=== PATIENT | female | born 1940 | race Caucasian/White ===

== ENCOUNTER 2018-05-04 17:14 | Inpatient (IN) | payer MEDICARE ==
[~2018-05-04] VITALS: Ht 162.6 cm; Wt 57.8 kg
[~2018-05-04 17:14] MED LIST: ASPI-1169 PO; ATEN50TA PO; HYDR12.5 PO; LISI40TA4 PO; OMEP20TA20 PO; SERT100T PO; SIMV40TA2 PO; TRAZ-182 PO; TRIA1CAP6 PO
--- NOTE | 2018-05-04 17:20 | NUR ---
WILFRID FROM HOME, W C/O COCCYX PAIN S/P FALL 2WEEKS AGO. TO ER BED 6, HOOKED TO MONITOR, AWAITING MD CROOKS
--- NOTE | 2018-05-04 17:29 | NUR ---
DR MATHIAS AT BEDSIDE
--- NOTE | 2018-05-04 17:38 | NUR ---
PT OUT FOR CT LUMBAR SPINE
[2018-05-04] MEDS ORDERED: IV NS 0.9% 500 ML BAG IV ONE (19:00)
[2018-05-04] MEDS ORDERED: ONDANSETRON HCL/PF 4 MG/2 ML VIAL IVP ONE (19:00)
[2018-05-04] MEDS ORDERED: MORPHINE SULFATE INJ 2 MG/ML DISP.SYRIN IV ONE (19:00)
[2018-05-04] MEDS ORDERED: CELE200C PO (19:05)
[2018-05-04] MEDS ORDERED: GABA-532 PO (19:05)
[2018-05-04] MEDS ORDERED: ONDANSETRON HCL/PF 4 MG/2 ML VIAL ONE (19:08)
[2018-05-04] MEDS ORDERED: MORPHINE SULFATE INJ 4 MG/ML DISP.SYRIN ONE (19:09)
[2018-05-04 19:14] LABS: BASOPHILS % (AUTO) 0.1 % (0.0-2.0); EOSINOPHILS % (AUTO) 1.1 % (0.0-6.0); HEMATOCRIT 33 % (33-45); HEMOGLOBIN 11.1 g/dL (11.5-14.8); LYMPHOCYTES # (AUTO) 0.5 /CMM (0.8-4.8); LYMPHOCYTES % (AUTO) 4.7 % (20.0-44.0); MEAN CORPUSCULAR HGB CONC 34 g/dl (31.0-36.0); MEAN CORPUSCULAR VOLUME 98 fL (82-100); MONOCYTES # (AUTO) 0.6 /CMM (0.1-1.30); MONOCYTES % (AUTO) 5.1 % (2.0-12.0); NEUTROPHILS # (AUTO) 10.4 /CMM (1.8-8.9); PLATELET COUNT (AUTO) 203 /CMM (150-450); RED BLOOD CELL COUNT(AUTO) 3.37 MIL/uL (4.0-5.2); WHITE BLOOD COUNT (AUTO) 11.7 K/uL (4.3-11.0)
[2018-05-04] MEDS ORDERED: HYDROMORPHONE INJ 0.5 MG/0.5 ML SYRINGE ONE (19:19)
[2018-05-04 19:22] LABS: CALCIUM, SERUM 8.6 mg/dL (8.5-10.1); CARBON DIOXIDE 29 mmol/L (21-32); CHLORIDE 98 mmol/L (98-107); CREATININE 0.8 mg/dL (0.6-1.3); GLUCOSE 105 mg/dL (74-106); POTASSIUM 3.9 mmol/L (3.5-5.1); SODIUM SERUM 134 mmol/L (136-145); UREA NITROGEN, BLOOD 19 mg/dL (7-18)
[2018-05-04] MEDS ORDERED: HYDROMORPHONE INJ 2 MG/ML DISP.SYRIN IV ONE (19:30)
--- NOTE | 2018-05-04 19:35 | NUR ---
REPORT GIVEN TO TL PARKER FOR NARAYAN
[2018-05-04 19:36] LABS: ALANINE AMINOTRANSFERASE 26 U/L (12-78); ALBUMIN 3.8 g/dL (3.4-5.0); ALKALINE PHOSPHATASE 166 U/L (46-116); ASPARTATE AMINOTRANSFERASE 27 U/L (15-37); BILIRUBIN,DIRECT 0.1 mg/dL (0.0-0.2); BILIRUBIN,TOTAL 0.5 mg/dL (0.2-1.0); TOTAL PROTEIN, SERUM 6.4 g/dL (6.4-8.2)
--- NOTE | 2018-05-04 19:37 | NUR ---
CALLED NURSING SUP FOR MEDSURG BED FOR THIS PATIENT.
--- NOTE | 2018-05-04 20:15 | NUR ---
325-2 MED SURG; INTRACTABLE BACK PAIN; BERTIN SHAW
--- NOTE | 2018-05-04 20:15 | NUR ---
PATIENT ADMIT TO M/S 325-2.
--- NOTE | 2018-05-04 20:31 | NUR ---
report given to susie hall for carlie
[2018-05-04 20:40] VITALS: BP 134/65
--- NOTE | 2018-05-04 20:45 | NUR ---
RECEIVED PATIENT FROM ER VIA GURNEY WITH NO DISTRESS NOTED. PATIENT A/0 X4. NO C/O PAIN OR DISCOMFORT. PERIPHERAL LINE IN LAC #2O GAUGE INTACT AND PATENT. BED IN LOW LOCK SETTING. ENCOURAGED USE OF CALL LIGHT FOR ASSISTANCE AND VERBALIZED GOOD UNDERSTANDING. WILL CONTINUE TO MONITOR.
[2018-05-04] MEDS ORDERED: ONDANSETRON HCL/PF 4 MG/2 ML VIAL IVP PRN (22:30)
[2018-05-04] MEDS ORDERED: ZOLPIDEM TARTRATE 5 MG TABLET PO PRN (22:30)
[2018-05-05] MEDS: HYDROCODONE/APAP 5/325MG 1 EACH TABLET PO PRN ×6 (00:13→21:42)
[2018-05-05] MEDS: ENOXAPARIN SODIUM 40 MG/0.4 ML DISP.SYRIN SQ SCH ×2 (00:14→21:46)
[2018-05-05 06:03] LABS: BASOPHILS % (AUTO) 0.3 % (0.0-2.0); EOSINOPHILS % (AUTO) 1.9 % (0.0-6.0); HEMATOCRIT 33 % (33-45); HEMOGLOBIN 11.6 g/dL (11.5-14.8); LYMPHOCYTES % (AUTO) 12.8 % (20.0-44.0); MEAN CORPUSCULAR HGB CONC 35 g/dl (31.0-36.0); MEAN CORPUSCULAR VOLUME 97 fL (82-100); MONOCYTES # (AUTO) 0.6 /CMM (0.1-1.30); MONOCYTES % (AUTO) 7.5 % (2.0-12.0); NEUTROPHILS # (AUTO) 6.1 /CMM (1.8-8.9); NEUTROPHILS % (AUTO) 77.5 % (43.0-81.0); PLATELET COUNT (AUTO) 197 /CMM (150-450); RED BLOOD CELL COUNT(AUTO) 3.43 MIL/uL (4.0-5.2); WHITE BLOOD COUNT (AUTO) 7.8 K/uL (4.3-11.0)
[2018-05-05 06:19] LABS: ALANINE AMINOTRANSFERASE 21 U/L (12-78); ALBUMIN 3.8 g/dL (3.4-5.0); ALKALINE PHOSPHATASE 159 U/L (46-116); ASPARTATE AMINOTRANSFERASE 29 U/L (15-37); BILIRUBIN,TOTAL 0.7 mg/dL (0.2-1.0); CARBON DIOXIDE 26 mmol/L (21-32); CHLORIDE 99 mmol/L (98-107); CREATININE 0.8 mg/dL (0.6-1.3); GLUCOSE 100 mg/dL (74-106); MAGNESIUM 1.9 mg/dL (1.8-2.4); PHOSPHORUS 2.5 mg/dL (2.5-4.9); SODIUM SERUM 135 mmol/L (136-145); TOTAL PROTEIN, SERUM 6.5 g/dL (6.4-8.2); UREA NITROGEN, BLOOD 13 mg/dL (7-18)
--- NOTE | 2018-05-05 06:20 | NUR ---
MS RN NOTES PATIENT AWAKE IN BED WITH NO DISTRESS NOTED. CALL LIGHT WITHIN REACH. ALL DUE MEDS GIVEN ORDERED WITH NO ASE NOTED. NO FURTHER C/O PAIN OR DISCOMFORT. PERIPHERAL LINE INTACT AND PATENT. BED IN LOW LOCK SETTING. ALL BELONGINGS KEPT NEAR BEDSIDE. WILL ENDORSE TO ONCOMING SHIFT.
[2018-05-05 06:22] LABS: CHOLESTEROL 127 mg/dL (<200); HDL CHOLESTEROL 72 mg/dL (40-60); LDL 48 mg/dL (0-99); THYROID STIMULATING HORMONE 4.708 uIU/mL (0.358-3.74); TRIGLYCERIDES 82 mg/dL (30-150)
[2018-05-05] MEDS: ACETAMINOPHEN 325 MG TABLET PO PRN (06:23)
--- NOTE | 2018-05-05 07:10 | NUR ---
RN OPENING NOTES PT AWAKE AND RESTING IN BED. NO COMPLAINTS OF SOB OR DISTRESS AT THIS TIME. PT HAS A LEFT AC #20 INTACT, AND PATENT. PT WAITING FOR ORTHO CONSULT WITH DR IBARRA. SAFETY PRECAUTIONS IN PLACE, BED IN LOWEST LOCKED POSITION, X2 SIDE RAILS UP AND CALL LIGHT WITHIN REACH. WILL CONTINUE TO MONITOR.
[2018-05-05 08:00] VITALS: BP 114/57
[2018-05-05] MEDS: SERTRALINE HCL 50 MG TABLET PO SCH (08:26)
[2018-05-05] MEDS: TRIAMTERENE/HYDROCHLOROTHIAZID (37.5/25MG) 1 UDCAP PO SCH (08:26)
[2018-05-05] MEDS: ASPIRIN 81 MG TAB.CHEW PO SCH (08:28)
[2018-05-05] MEDS: GABAPENTIN 100 MG CAPSULE PO SCH ×3 (08:28→17:36)
[2018-05-05] MEDS: ATENOLOL 50 MG TABLET PO SCH (08:28)
[2018-05-05] MEDS ORDERED: CELECOXIB 100 MG CAPSULE PO SCH (09:00)
[2018-05-05] MEDS ORDERED: LISINOPRIL (20MG) 20 MG TABLET PO SCH (09:00)
[2018-05-05] MEDS ORDERED: NAPROXEN 500 MG TABLET PO SCH (09:00)
[2018-05-05] MEDS ORDERED: BISACODYL SUPP (10 MG) 10 MG/SUPP.RECT SUPP.RECT RC PRN (11:00)
--- NOTE | 2018-05-05 11:27 | NUR ---
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 Dr Weiner made aware of new consult. No surgical intervention required, physical therapy evaluation ordered. Patient weight bearing status to be WBAT, will be seen tomorrow by .
[2018-05-05] MEDS ORDERED: HYDROCODONE/APAP 10/325MG 1 EA TABLET PO ONE (14:30)
[2018-05-05 16:00] VITALS: BP 132/94
[2018-05-05] MEDS: DOCUSATE SODIUM 100 MG CAPSULE PO SCH (17:36)
--- NOTE | 2018-05-05 18:50 | NUR ---
RN CLOSING NOTES PT AWAKE AND RESTING IN BED. ALL PATIENT NEEDS MET DURING SHIFT. PT HAS A LEFT AC #20 INTACT, AND PATENT. SAFETY PRECAUTIONS IN PLACE, BED IN LOWEST LOCKED POSITION, X2 SIDE RAILS UP AND CALL LIGHT WITHIN REACH. WILL ENDORSE TO HAIR OR BEAUTY SALON MANAGER NURSE FOR CONTINUITY OF CARE.
--- NOTE | 2018-05-05 19:51 | NUR ---
MS RN NOTES RECEIVED PATIENT AWAKE IN BED AND WATCHING TV WITH NO DISTRESS NOTED. CALL LIGHT WITHIN REACH. NO C/O PAIN OR DISCOMFORT. PERIPHERAL LINE INTACT AND PATENT. BED IN LOW LOCK SETTING. ALL BELONGINGS KEPT NEAR BEDSIDE. WILL CONTINUE TO MONITOR.
[2018-05-05 20:00] VITALS: BP 117/65
[2018-05-05] MEDS: TRAZODONE 50 MG TABLET PO SCH (21:42)
[2018-05-05] MEDS: SIMVASTATIN 40 MG TABLET PO SCH (21:42)
[2018-05-05] MEDS: MAGNESIUM HYDROXIDE 30 ML UDC PO PRN (21:42)
[2018-05-06] MEDS: HYDROCODONE/APAP 5/325MG 1 EACH TABLET PO PRN ×2 (05:57→10:11)
--- NOTE | 2018-05-06 06:19 | NUR ---
MS RN NOTES PATIENT ASLEEP IN BED WITH NO DISTRESS NOTED. CALL LIGHT WITHIN REACH. ALL DUE MEDS GIVEN ORDERED WIHT NO ASE NOTED. NO FURTHER C/O PAIN OR DISCOMFORT. PERIPHERAL LINE INTACT AND PATENT. BED IN LOW LOCK SETTING. ALL BELONGINGS KEPT NEAR BEDSIDE. WILL CONTINUE TO MONITOR.
[2018-05-06] MEDS: PANTOPRAZOLE 40 MG TABLET.DR PO SCH (08:09)
[2018-05-06 08:13] VITALS: BP 149/66
[2018-05-06] MEDS: ASPIRIN 81 MG TAB.CHEW PO SCH (10:09)
[2018-05-06] MEDS: DOCUSATE SODIUM 100 MG CAPSULE PO SCH ×2 (10:11→17:00)
[2018-05-06] MEDS: ATENOLOL 50 MG TABLET PO SCH (10:11)
[2018-05-06] MEDS: CELECOXIB 100 MG CAPSULE PO SCH (10:12)
[2018-05-06] MEDS: GABAPENTIN 100 MG CAPSULE PO SCH ×3 (10:12→17:00)
[2018-05-06] MEDS: SERTRALINE HCL 50 MG TABLET PO SCH (10:12)
[2018-05-06] MEDS: TRIAMTERENE/HYDROCHLOROTHIAZID (37.5/25MG) 1 UDCAP PO SCH (10:13)
[2018-05-06] MEDS: HYDROCODONE/APAP 10/325MG 1 EA TABLET PO PRN ×2 (13:41→18:27)
[2018-05-06 16:00] VITALS: BP_SYST 135; BP_SYST 138; BP_DIAS 74
[2018-05-06] MEDS ORDERED: LISINOPRIL (20MG) 20 MG TABLET PO SCH (18:00)
--- NOTE | 2018-05-06 19:25 | NUR ---
MS/RN OPENING NOTES PT RECEIVED AWAKE, RESTING COMFORTABLY IN BED. A/OX3. ON ROOM AIR, BREATHING EVEN AND UNLABORED. DENIES SOB, SACRAL PAIN NOTED TO BE 4/10 AT THIS TIME. IV TO LAC PATENT AND INTACT. BED IN LOW/LOCKED POSITION WITH CALL LIGHT IN REACH. BILATERAL UPPER SIDE RAILS IN PLACE. WILL CONTINUE TO MONITOR
[2018-05-06 20:00] VITALS: BP 125/61
[2018-05-06] MEDS: SIMVASTATIN 40 MG TABLET PO SCH (21:34)
[2018-05-06] MEDS: TRAZODONE 50 MG TABLET PO SCH (21:34)
[2018-05-06] MEDS: ENOXAPARIN SODIUM 40 MG/0.4 ML DISP.SYRIN SQ SCH (21:35)
[2018-05-07] MEDS: MAGNESIUM HYDROXIDE 30 ML UDC PO PRN (04:44)
[2018-05-07] MEDS: ACETAMINOPHEN 325 MG TABLET PO PRN (04:44)
--- NOTE | 2018-05-07 04:45 | NUR ---
MS/RN NOTES PT C/O MILD ABDOMINAL AND BLE MUSCLE PAIN. REQUESTING TYLENOL. ALSO EXPRESSED WANTING TO HAVE BM BUT HAVING DIFFICULTIES. OFFERED PRUNE JUICE OR MILK OF MAGNESIA. ACCEPTED M.O.M. ENCOURAGED TO USE CALL LIGHT FOR ASSIST IN GETTING UP TO USE BSC
--- NOTE | 2018-05-07 06:32 | NUR ---
MS/RN CLOSING NOTES PT AWAKE, HOB ELEVATED. RESTING COMFORTABLY IN BED. ON ROOM AIR, BREATHING EVEN AND UNLABORED. DENIES SOB AND PAIN AT THIS TIME. IN NO ACUTE DISTRESS. TYLENOL EFFECTIVE. PASSING GAS BUT STILL NO BM YET. IV TO LAC PATENT AND INTACT. NO SIGNIFICANT CHANGES OVERNIGHT. ALL NEEDS MET. BED REMAINS IN LOW/LOCKED POSITION WITH CALL LIGHT IN REACH, BILATERAL UPPER SIDE RAILS IN PLACE. WILL ENDORSE TO DAY SHIFT RN NARAYAN.
[2018-05-07 08:00] VITALS: BP 123/62
[2018-05-07] MEDS: TRIAMTERENE/HYDROCHLOROTHIAZID (37.5/25MG) 1 UDCAP PO SCH (08:31)
[2018-05-07] MEDS: PANTOPRAZOLE 40 MG TABLET.DR PO SCH (08:31)
[2018-05-07] MEDS: SERTRALINE HCL 50 MG TABLET PO SCH (08:31)
[2018-05-07 08:32] VITALS: BP 123/62
[2018-05-07] MEDS: DOCUSATE SODIUM 100 MG CAPSULE PO SCH (08:32)
[2018-05-07] MEDS: ASPIRIN 81 MG TAB.CHEW PO SCH (08:32)
[2018-05-07] MEDS: ATENOLOL 50 MG TABLET PO SCH (08:32)
[2018-05-07] MEDS: GABAPENTIN 100 MG CAPSULE PO SCH ×2 (08:32→13:51)
[2018-05-07] MEDS: CELECOXIB 100 MG CAPSULE PO SCH (08:32)
[2018-05-07] MEDS: HYDROCODONE/APAP 10/325MG 1 EA TABLET PO PRN ×2 (08:36→13:51)
[2018-05-07] MEDS ORDERED: DOCU-141 PO (11:18)
[2018-05-07] MEDS ORDERED: HYDR-3972 PO (11:18)
[2018-05-07] MEDS ORDERED: MAGN400O6 PO (11:18)
[2018-05-07] MEDS ORDERED: ONDA4TAB5 PO (11:18)
[2018-05-07] MEDS ORDERED: PANT40TA2 PO (11:18)
[2018-05-07] MEDS ORDERED: ENOX40DI SQ (11:18)
[2018-05-07] MEDS ORDERED: BISA10SU8 RC (11:18)
[2018-05-07] MEDS ORDERED: ACET325T53 PO (11:18)
[2018-05-07] MEDS ORDERED: CELE100C PO (11:18)
[2018-05-07] MEDS: HYDROMORPHONE INJ 0.5 MG/0.5 ML SYRINGE IV PRN ×2 (11:34→15:25)
--- NOTE | 2018-05-07 14:15 | NUR ---
Called report to [facility] and spoke with Dolly PARKER
--- NOTE | 2018-05-07 15:38 | NUR ---
Pt to dc via [facility] to [place], dc IV, return belongings, reviewed paperwork, report given to EMS, premedicated per pt and EMS request for pain. pt tolerated well. pt discharged
== END 2018-05-07 15:45 | DRG 543 ==
LOC: ER 17:18 → MED 20:24
PROVIDERS: ADMIT Nurse Practitioner Acute Care; ATTEND Registered Nurse
DX: M48.58XA Collapsed vertebra, not elsewhere classified, sacral and sacrococcygeal region, initial encounter for fracture (principal); E87.1 Hypo-osmolality and hyponatremia; W10.9XXA Fall (on) (from) unspecified stairs and steps, initial encounter; Y92.009 Unspecified place in unspecified non-institutional (private) residence as the place of occurrence of the external cause; K21.9 Gastro-esophageal reflux disease without esophagitis; H26.9 Unspecified cataract; E78.5 Hyperlipidemia, unspecified; M19.90 Unspecified osteoarthritis, unspecified site; I10 Essential (primary) hypertension; T50.2X5A Adverse effect of carbonic-anhydrase inhibitors, benzothiadiazides and other diuretics, initial encounter; Z79.82 Long term (current) use of aspirin; Z79.899 Other long term (current) drug therapy; Z87.11 Personal history of peptic ulcer disease; Z90.49 Acquired absence of other specified parts of digestive tract
CPT/HCPCS: 36415; 71045-TC; 72131-TC; 80048-TC; 80053-TC; 80061-TC; 80076-TC; 83735-TC; 84100-TC; 84443-TC; 85025-TC; 85730-TC; 87081-TC; 97110-TC; 97116-TC; 97530-TC; G0378; J1650; J2270; J2405; J7040

== ENCOUNTER → 2022-03-24 | Emergency (ER) | payer MEDICARE ==
[~2022-03-24] VITALS: Ht 144.8 cm; Wt 43.1 kg
[~2022-03-24] MED LIST changes: +ACET325T53 PO; +AMOX-430 PO; +BISA10SU11 RC; +CELE100C PO; +DOCU-141 PO; +ENOX40DI SQ; +GABA-532 PO; +HYDR-3972 PO; -HYDR12.5 PO; +LISI40TA13 PO; -LISI40TA4 PO; +MAGN400O6 PO; +ONDA4TAB5 PO; +PANT40TA2 PO
--- NOTE | 2022-03-24 22:15 | NUR ---
BIBSELF C/O TRIP AND FALL SWELLING TO FACE RIGHT EYE, AND PAIN RIGHT ANKLE. DENIES KO. PT AAO X 4, NOT IN DISTRESS. ATTACHED TO MONITOR AND PULSE OX. AWAITING MD ORDERS.
--- NOTE | 2022-03-24 22:43 | NUR ---
PT TAKEN TO CT
--- NOTE | 2022-03-24 22:56 | NUR ---
PT RETURNED TO ER BED [address]
--- NOTE | 2022-03-24 23:54 | NUR ---
Patient discharged to home in stable condition. Written and verbal after care instructions given. Patient verbalizes understanding of instruction. Pt is ambulatory with a steady gait
[2022-03-24 23:55] VITALS: BP 127/58
== END | disposition home or self-care (01) ==
LOC: ER 21:50
DX: S02.31XA Fracture of orbital floor, right side, initial encounter for closed fracture (principal); I10 Essential (primary) hypertension; E78.00 Pure hypercholesterolemia, unspecified; Z79.899 Other long term (current) drug therapy; Z85.89 Personal history of malignant neoplasm of other organs and systems; W01.0XXA Fall on same level from slipping, tripping and stumbling without subsequent striking against object, initial encounter; Y93.01 Activity, walking, marching and hiking; Y92.481 Parking lot as the place of occurrence of the external cause; Y99.8 Other external cause status
CPT/HCPCS: 70450-TC; 70486-TC; 73610-TC

== ENCOUNTER 2022-11-01 20:32 | Emergency (ER) | payer MEDICARE ==
[~2022-11-01] VITALS: Ht 162.6 cm; Wt 45.4 kg
[2022-11-02 00:12] VITALS: BP 158/99; TEMP 98; O2SAT 98
== END 2022-11-02 00:13 | disposition home or self-care (01) ==
LOC: ER 20:35
DX: G57.01 Lesion of sciatic nerve, right lower limb (principal); I10 Essential (primary) hypertension; E78.5 Hyperlipidemia, unspecified; Z60.2 Problems related to living alone; Z79.899 Other long term (current) drug therapy
CPT/HCPCS: 72170-TC

== ENCOUNTER 2025-01-03 14:43 | Emergency (ER) | payer MEDICARE ==
[~2025-01-03] VITALS: Ht 162.6 cm; Wt 48.5 kg
[2025-01-03 16:40] LABS: APPEARANCE,URINE CLEAR (CLEAR); BLOOD, URINE 2+ Ery/uL (NEGATIVE); LEUKOCYTE ESTERASE ,URINE 2+ (NEGATIVE); NITRITE, URINE NEGATIVE (NEGATIVE); UGLUCOSE NEGATIVE (NEGATIVE)
[2025-01-03 17:24] LABS: ADD URINE CULTURE YES
[2025-01-03] MEDS ORDERED: NITR100C6 PO (17:32)
[2025-01-03 17:57] VITALS: BP 151/99; TEMP 98.3; O2SAT 96
== END 2025-01-03 17:57 | disposition home or self-care (01) ==
LOC: ER 14:57
DX: N39.0 Urinary tract infection, site not specified (principal); R30.0 Dysuria; E78.5 Hyperlipidemia, unspecified; I10 Essential (primary) hypertension; Z79.1 Long term (current) use of non-steroidal anti-inflammatories (NSAID); Z79.82 Long term (current) use of aspirin; Z86.79 Personal history of other diseases of the circulatory system; Z60.2 Problems related to living alone; Z79.899 Other long term (current) drug therapy
CPT/HCPCS: 81001; 87086-TC